=== PATIENT | female | born 1995 | race Caucasian/White ===

== ENCOUNTER 2019-06-26 21:31 | Emergency (ER) | payer BC ==
--- NOTE | 2019-06-26 23:07 | EKG REPORT ---
SEVERITY:- OTHERWISE NORMAL ECG - SINUS TACHYCARDIA : Confirmed by: Carter Mary MD 26-Jun-2019 23:06:46
--- NOTE | 2019-06-26 23:09 | ER Document Report ---
ED Medical Screen (RME) - General Chief Complaint: Chest Pain Stated Complaint: CHEST PAIN Time Seen by Provider: 06/26/19 23:02 Mode of Arrival: Ambulatory Information source: Patient Notes: 24-year-old female patient presenting to the emergency department with chief complaint of chest pain. Patient reports chest pain intermittently over the last 3 days, states it is midsternal chest pain that feels like a burning and stabbing. Patient does have history of acid reflux, she states initially she thought it was this. She states that the pain has progressed and gotten worse. She reports the pain now radiates under her left breast and across the left chest wall. Patient denies any recent trauma or heavy lifting. She does report shortness of breath but denies nausea. She has no history of cardiac disease, no history of PE/DVT. Of note patient is a smoker, has had recent travel, she drove to [place] and does not take any oral contraceptive pills. Exam: Heart sounds S1-S2 present, regular rate, regular rhythm. Lung sounds clear and equal bilaterally. I have greeted and performed a rapid initial assessment of this patient. A comprehensive ED assessment and evaluation of the patient, analysis of test results and completion of the medical decision making process will be conducted by additional ED providers. I have specifically instructed the patient or family members with the patient to immediately return to any nursing staff should anything change in the patient's condition or with their chief complaint. This medical record was dictated with voice recognizing software. There may be grammatical, syntax errors that are unintended. Physical Exam - Vital signs Vitals: Temp Pulse Resp BP Pulse Ox 98.0 F 102 H 18 133/85 H 99 06/26/19 22:09 06/26/19 22:09 06/26/19 22:09 06/26/19 22:09 06/26/19 22:09 Course - Vital Signs Vital signs: Temp Pulse Resp BP Pulse Ox 98.0 F 102 H 18 133/85 H 99 06/26/19 22:09 06/26/19 22:09 06/26/19 22:09 06/26/19 22:09 06/26/19 22:09
[2019-06-26] MEDS ORDERED: MAG HYDROX/AL HYDROX/SIMETH SUSP 30 ML UDCUP PO ONE (23:11)
[2019-06-26] MEDS ORDERED: METOCLOPRAMIDE HCL ORAL SOLN 10 MG/10 ML UDCUP PO ONE (23:12)
[2019-06-26] MEDS ORDERED: LIDOCAINE 2% VISCOUS SOLN 20 ML UDCUP PO ONE (23:12)
--- NOTE | 2019-06-26 23:53 | RADIOLOGY REPORT (SQ) ---
EXAM DESCRIPTION: XR CHEST 2 VIEWS COMPLETED DATE/TME: 06/26/2019 23:11 CLINICAL HISTORY: 24 years, Female, chest pain COMPARISON: None. NUMBER OF VIEWS: 2 TECHNIQUE: 2 views of the chest LIMITATIONS: None. FINDINGS: Heart size normal. Lungs clear. No pneumothorax IMPRESSION: Negative chest copyright 2010 [employer]- All Rights Reserved
[2019-06-27] MEDS ORDERED: MAG HYDROX/AL HYDROX/SIMETH SUSP 30 ML UDCUP ONE (01:25)
[2019-06-27] MEDS ORDERED: LIDOCAINE 2% VISCOUS SOLN 20 ML UDCUP ONE (01:25)
[2019-06-27] MEDS ORDERED: METOCLOPRAMIDE HCL ORAL SOLN 10 MG/10 ML UDCUP ONE (01:26)
[2019-06-27 02:02] LABS: ABSOLUTE EOSINOPHILS # (AUTO) 0.1 10^3/uL (0.0-0.6); ABSOLUTE LYMPHOCYTES (AUTO) 1.5 10^3/uL (0.5-4.7); ABSOLUTE MONOCYTES (AUTO) 0.4 10^3/uL (0.1-1.4); ABSOLUTE NEUT (AUTO) 6.2 10^3/uL (1.7-8.2); BASOPHILS % (AUTO) 0.4 % (0-2); EOSINOPHILS % (AUTO) 1.1 % (0-6); HEMATOCRIT 41.8 % (36.0-47.0); HEMOGLOBIN 14.2 g/dL (12.0-15.5); LYMPHOCYTES % (AUTO) 18.1 % (13-45); MEAN CORPUSCULAR HEMOGLOBIN 29.1 pg (27.0-33.4); MEAN CORPUSCULAR VOLUME 86 fl (80-97); PLATELET COUNT 278 10^3/uL (150-450); RED BLOOD COUNT 4.88 10^6/uL (3.72-5.28); RED CELL DISTRIBUTION WIDTH 14.7 % (11.5-14.0); SEGMENTED NEUTROPHILS % (AUTO) 75.4 % (42-78); TOTAL CELLS COUNTED % (AUTO) 100 %; WHITE BLOOD COUNT 8.2 10^3/uL (4.0-10.5)
[2019-06-27 02:18] LABS: ALBUMIN 4.7 g/dL (3.5-5.0); ALKALINE PHOSPHATASE 87 U/L (38-126); ANION GAP 12 (5-19); ASPARTATE AMINO TRANSFERASE 22 U/L (14-36); BILIRUBIN,DIRECT 0.1 mg/dL (0.0-0.4); BILIRUBIN,TOTAL 0.3 mg/dL (0.2-1.3); BLOOD UREA NITROGEN 11 mg/dL (7-20); CALCIUM 9.8 mg/dL (8.4-10.2); CARBON DIOXIDE 23 mmol/L (22-30); CHLORIDE 108 mmol/L (98-107); GLUCOSE 103 mg/dL (75-110); POTASSIUM 4.4 mmol/L (3.6-5.0); TOTAL PROTEIN 7.5 g/dL (6.3-8.2)
--- NOTE | 2019-06-27 03:22 | ER Document Report ---
ED General - General Chief Complaint: Chest Pain Stated Complaint: CHEST PAIN Time Seen by Provider: 06/26/19 23:02 Mode of Arrival: Ambulatory Notes: Ms. Bailey is a 24 yo f w/ PMH and on omeprazole presenting to the ED for chest pain. Patient states that she and her boyfriend just drove to and from [place] approximately 3 weeks ago. They stopped 2 or 3 times in route but only usually to get gas. She states that her chest pain began on Wednesday and has progressively worsened throughout the past 2 to 3 days. She describes it as sometimes sharp and stabbing but other times burning. The patient states that she was on omeprazole 40 mg for at least 6 to 7 months and her primary care doctor changed her from the 40 mg to 20 mg in March. She feels that that has not been working for her as well. She has been using Tums on and off. She denies any shortness of breath, lower extremity edema, abdominal pain, nausea vomiting or diarrhea. She denies any dyspnea upon exertion. No personal cardiac history or significant family history of any cardiac issues. She also denies any personal or family history of blood clots either in the legs or lungs. Patient states she is not on control however she does smoke approximately half pack per day. She also endorses subjective anxiety. TRAVEL OUTSIDE OF THE [place] IN LAST 30 DAYS: No - Related Data Allergies/Adverse Reactions: sulfamethoxazole [From Bactrim] Allergy (Verified 06/26/19 23:07) trimethoprim [From Bactrim] Allergy (Verified 06/26/19 23:07) Home Medications: omeprazole 20mg Past Medical History - General Information source: Patient - Social History Smoking Status: Current Every Day Smoker Family History: Reviewed & Not Pertinent Patient has suicidal ideation: No Patient has homicidal ideation: No GI Medical History: Reports: Hx Gastroesophageal Reflux Disease Past Surgical History: Reports: Hx Orthopedic Surgery Review of Systems - Review of Systems Constitutional: See HPI EENT: No symptoms reported Cardiovascular: See HPI Respiratory: See HPI Gastrointestinal: No symptoms reported Genitourinary: No symptoms reported Female Genitourinary: No symptoms reported Musculoskeletal: No symptoms reported Skin: No symptoms reported Hematologic/Lymphatic: No symptoms reported Neurological/Psychological: No symptoms reported Physical Exam - Vital signs Vitals: Temp Resp Pulse Ox 98.0 F 18 99 06/26/19 21:32 06/26/19 21:32 06/26/19 21:32 Interpretation: Tachycardic - General General appearance: Appears well, Alert - HEENT Head: Normocephalic, Atraumatic Eyes: Normal Pupils: PERRL - Respiratory Respiratory status: No respiratory distress Chest status: Nontender Breath sounds: Normal Chest palpation: Normal - Cardiovascular Rhythm: Regular Heart sounds: Normal auscultation Murmur: No - Abdominal Inspection: Normal Distension: No distension Bowel sounds: Normal Tenderness: Nontender Organomegaly: No organomegaly - Back Back: Normal, Nontender - Extremities General upper extremity: Normal inspection, Nontender, Normal color, Normal ROM, Normal temperature General lower extremity: Normal inspection, Nontender, Normal color, Normal ROM, Normal temperature, Normal weight bearing. No: Sandy's sign - Neurological Neuro grossly intact: Yes Cognition: Normal Orientation: AAOx4 Rona Coma Scale Eye Opening: Spontaneous Rona Coma Scale Verbal: Oriented [place] Coma Scale Motor: Obeys Commands Rona Coma Scale Total: 15 Speech: Normal Motor strength normal: LUE, RUE, LLE, RLE Sensory: Normal - Psychological Associated symptoms: Normal affect, Normal mood - Skin Skin Temperature: Warm Skin Moisture: Dry Skin Color: Normal Course - Re-evaluation Re-evalutation: Patient is generally well-appearing and nontoxic. Initial vitals notable for mild tachycardia. Differential diagnosis includes GERD, costochondritis, gastritis, PE (less likely) CBC, CMP and initial troponin are all unremarkable. EKG is nonischemic. Chest X-ray unremarkable. 06/27/19 03:25 Unable to PERC patient given her persistent tachycardia and recent long drive to [place]. Plan to obtain d-dimer, if negative will DC with likely diagnosis of GERD however if positive, patient is amenable to CTA chest to assess for possible PE. 06/27/19 04:13 Dimer is negative. Patient feels significantly improved after GI cocktail. Will provide prescription for omeprazole 40 mg. Patient is directed to avoid foods high in acidity. Patient given return precautions instructed to follow-up with her primary care doctor as needed. - Vital Signs Vital signs: Temp Pulse Resp BP Pulse Ox 98.0 F 102 H 18 118/82 99 06/26/19 22:09 06/26/19 22:09 06/27/19 03:04 06/27/19 02:01 06/27/19 03:04 - Laboratory Result Diagrams: 06/27/19 01:47 06/27/19 01:47 Laboratory results interpreted by me: 06/27/19 06/27/19 01:47 01:47 RDW 14.7 H Chloride 108 H - EKG Interpretation by Me EKG shows normal: Sinus rhythm, [place], QRS Complexes Rate: Tachycardia Rhythm: NSR Heart block present: 1st Degree When compared to previous EKG there are: Previous EKG unavailable Discharge - Discharge Clinical Impression: GERD (gastroesophageal reflux disease) Qualifiers: Esophagitis presence: with esophagitis Qualified Code(s): K21.0 - Gastro- esophageal reflux disease with esophagitis Condition: Good Disposition: HOME, SELF-CARE Instructions: Antacid Therapy ([facility]), Prilosec (Acid Pump Inhibitor) ([facility]), Reflux Disease (GERD) ([facility]) Additional Instructions: I would recommend that you avoid spicy foods and foods high in acidity such as tomatoes, tomato sauce, and citrus products. I would recommend that you either double up your Prilosec to 40 mg daily or use famotidine in addition to the Prilosec. You can continue to use Tums as well. Make sure you drink plenty of fluids and stay well-hydrated with water Gatorade. Prescriptions: Omeprazole 40 mg PO DAILY #30 capsule.dr Forms: Smoking Cessation Education
[2019-06-27 04:29] VITALS: BP 123/79
== END 2019-06-27 04:29 | disposition home or self-care (01) ==
LOC: ER 21:31
DX: K21.0 Gastro-esophageal reflux disease with esophagitis (principal); Z79.899 Other long term (current) drug therapy; R07.9 Chest pain, unspecified; R00.0 Tachycardia, unspecified; I44.0 Atrioventricular block, first degree; F17.200 Nicotine dependence, unspecified, uncomplicated; Z88.1 Allergy status to other antibiotic agents
CPT/HCPCS: 93005; 99285; 36415; 84703; 85025; 80053; 84484; 85379; 71046; 93010; J3490